=== PATIENT | male | born 1955 | race Caucasian/White ===

== ENCOUNTER 2024-07-05 10:57 | Day surgery (SDC) | payer MEDICARE ==
[~2024-07-05] VITALS: Ht 172.7 cm; Wt 98.2 kg
[2024-07-05] VITALS (10 sets, daily range): BP systolic 124–154; BP diastolic 59–75; PULSE 64–75; RESP 8–20; TEMP 98; O2SAT 93–97
[2024-07-05] MEDS ORDERED: diphenhydrAMINE 25mg capsule PO PRN (11:25)
[2024-07-05 12:13] LABS: BASOPHILS # (AUTO) 0.1 X10'3 (0-0.2); BASOPHILS % (AUTO) 1.1 % (0-1); EOSINOPHILS # (AUTO) 0.2 X10'3 (0-0.9); EOSINOPHILS % (AUTO) 3.1 % (0-6); HEMATOCRIT 43.8 % (42.0-52.0); HEMOGLOBIN 14.6 g/dl (14.0-17.9); LYMPHOCYTES # (AUTO) 1.9 X10'3 (1.1-4.8); LYMPHOCYTES % (AUTO) 28.2 % (21-51); MEAN CORPUSCULAR HEMOGLOBIN 28.7 PG (27.0-31.0); MEAN CORPUSCULAR HGB CONC 33.4 g/dL (33.0-36.5); MEAN PLATELET VOLUME 7.8 FL (7.4-10.4); MONOCYTES # (AUTO) 0.6 X10'3 (0-0.9); NEUTROPHILS # (AUTO) 3.9 X10'3 (1.8-7.7); NEUTROPHILS % (AUTO) 58.6 % (42-75); PLATELET COUNT 234 X10'3 (140-440); RED BLOOD COUNT 5.09 X10'6 (4.70-6.10); RED CELL DISTRIBUTION WIDTH 14.8 % (11.5-14.5); WHITE BLOOD COUNT 6.7 X10'3 (4.5-11.0)
[2024-07-05 12:25] LABS: ALBUMIN 4.3 G/DL (3.4-5.0); ANION GAP 10 (8-16); BLOOD UREA NITROGEN 19 MG/DL (7-18); BUN/CREATININE RATIO 25.3 (10.0-20.0); CALCIUM 8.8 MG/DL (8.5-10.1); CHLORIDE 103 MMOL/L (99-107); CREATININE 0.75 MG/DL (0.60-1.10); GLUCOSE 115 MG/DL (70-104); MAGNESIUM 2.3 MG/DL (1.5-2.4); SODIUM 139 MMOL/L (135-145); TOTAL CARBON DIOXIDE 26.5 MMOL/L (24-32); eCRCL 90 ML/MIN; eGFR > 90 ML/MIN
[2024-07-05 12:31] LABS: PROTHROMBIN TIME 10.5 SECONDS (9.0-12.0)
[2024-07-05] MEDS ORDERED: METO50TA16 PO (12:50)
[2024-07-05] MEDS ORDERED: METF-438 PO (12:50)
[2024-07-05] MEDS ORDERED: ROSU20TA98 PO (12:50)
[2024-07-05] MEDS ORDERED: OLME40TA18 PO (12:50)
[2024-07-05] MEDS: normal saline 1,000 ML IV SCH (12:54)
[2024-07-05] MEDS: sodium bicarbonate 1meq/ml syr 150 ML in dextrose 5%-water 1,000 ML IV ONE (12:54)
[2024-07-05] MEDS ORDERED: ASPI-611 PO (12:55)
[2024-07-05] MEDS ORDERED: ALBU8HFA INH (12:55)
[2024-07-05] MEDS ORDERED: iohexol 350MG/ML 100ml bottle IV ONE (15:39)
[2024-07-05] MEDS ORDERED: fentaNYL/PF 50MCG/1 ML 2ML syringe ONE (15:39)
[2024-07-05] MEDS ORDERED: midazolam 1 mg/ML 2ml injection ONE ×2 (15:39→16:24)
[2024-07-05] MEDS ORDERED: heparin 1,000unit/ml 10ml vial 10 ML ONE (15:39)
[2024-07-05] MEDS ORDERED: LIDOcaine 1% 30ml preserv. free vial ONE (15:44)
[2024-07-05] MEDS ORDERED: ondansetron/PF 4mg/2ml inj IV PRN (17:20)
[2024-07-05] MEDS ORDERED: proCHLORperazine 10 MG/2 ml inj IV PRN (17:25)
[2024-07-05] MEDS ORDERED: HYDROcodone/acetaminophen 10/325mg tab PO PRN (17:25)
[2024-07-05] MEDS ORDERED: HYDROcodone/acetaminophen 5mg/325mg tablet PO PRN (17:25)
== END 2024-07-05 20:00 | disposition home or self-care (01) ==
LOC: SSTAY O 10:57
PROVIDERS: ATTEND Internal Medicine Cardiovascular Disease
DX: I70.213 Atherosclerosis of native arteries of extremities with intermittent claudication, bilateral legs (principal); I25.2 Old myocardial infarction; I25.118 Atherosclerotic heart disease of native coronary artery with other forms of angina pectoris; I10 Essential (primary) hypertension; G62.9 Polyneuropathy, unspecified; Z95.5 Presence of coronary angioplasty implant and graft; K21.9 Gastro-esophageal reflux disease without esophagitis; Z87.440 Personal history of urinary (tract) infections; Z79.899 Other long term (current) drug therapy; Z88.8 Allergy status to other drugs, medicaments and biological substances; Z98.890 Other specified postprocedural states
CPT/HCPCS: 36245; 36415; 75716; 80048; 82948; 83735; 85025; 85610; 93005; 99152; 99153; A6258; C1769; C1894; J1644; J2003; J2250; J3010; J3490; J7030; J7070; Q9967; Z7610; 36247

== ENCOUNTER 2024-08-04 19:56 | Emergency (ER) | payer MEDICARE ==
[~2024-08-04] VITALS: Ht 175.3 cm; Wt 65.9 kg
[~2024-08-04 19:56] MED LIST: ALBU8HFA INH; ASPI-1265 PO; CLOP75TA34 PO; HYDR-3972 PO; METF-438 PO; METO50TA16 PO; OLME40TA18 PO; ROSU20TA98 PO
[2024-08-04 20:42] LABS: BASOPHILS % (AUTO) 0.2 % (0-1); EOSINOPHILS # (AUTO) 0.2 X10'3 (0-0.9); EOSINOPHILS % (AUTO) 2.1 % (0-6); HEMATOCRIT 30.1 % (42.0-52.0); HEMOGLOBIN 10.2 g/dl (14.0-17.9); LYMPHOCYTES % (AUTO) 22.6 % (21-51); MEAN CORPUSCULAR VOLUME 85.5 FL (78-98); MEAN PLATELET VOLUME 7.8 FL (7.4-10.4); MONOCYTES # (AUTO) 1.1 X10'3 (0-0.9); MONOCYTES % (AUTO) 12.3 % (2-12); NEUTROPHILS # (AUTO) 5.6 X10'3 (1.8-7.7); NEUTROPHILS % (AUTO) 62.8 % (42-75); PLATELET COUNT 268 X10'3 (140-440); RED BLOOD COUNT 3.52 X10'6 (4.70-6.10); RED CELL DISTRIBUTION WIDTH 14.6 % (11.5-14.5); WHITE BLOOD COUNT 8.9 X10'3 (4.5-11.0)
[2024-08-04 20:53] LABS: ALBUMIN 3.1 G/DL (3.4-5.0); ANION GAP 10 (8-16); BLOOD UREA NITROGEN 21 MG/DL (7-18); BUN/CREATININE RATIO 23.3 (10.0-20.0); CALCIUM 8.9 MG/DL (8.5-10.1); CHLORIDE 102 MMOL/L (99-107); GLUCOSE 124 MG/DL (70-104); POTASSIUM 3.9 MMOL/L (3.5-5.1); SODIUM 139 MMOL/L (135-145); TOTAL CARBON DIOXIDE 26.9 MMOL/L (24-32); eCRCL 72 ML/MIN; eGFR 84 ML/MIN
[2024-08-04] MEDS: ondansetron/PF 4mg/2ml inj IV ONE (21:07)
[2024-08-04] MEDS: morphine 4 MG/ML inj SYRINge IV ONE ×2 (21:08→23:34)
[2024-08-04] MEDS ORDERED: iohexol 350 MG/ML 50ML vial IV ONE (21:17)
[2024-08-04] MEDS ORDERED: iohexol 350MG/ML 100ml bottle IV ONE (21:17)
[2024-08-04] MEDS: normal saline 1000ml 1,000 ML IV ONE (21:40)
[2024-08-05 00:06] VITALS: BP 147/67; PULSE 94; RESP 15; TEMP 98.6; O2SAT 98
[2024-08-09] MEDS ORDERED: MUPI22OI30 TOP (11:17)
== END 2024-08-05 00:23 | disposition home or self-care (01) ==
LOC: ER 19:56
DX: T81.89XA Other complications of procedures, not elsewhere classified, initial encounter (principal); Y92.89 Other specified places as the place of occurrence of the external cause; Z79.82 Long term (current) use of aspirin
CPT/HCPCS: 36415; 75635; 80048; 84145; 85025; 86885; 86900; 86901; 88304; 93925; 93978; 96361; 96374; 96375; 96376; 99285; J2270; J2405; J7030; Q9967

== ENCOUNTER 2024-10-13 13:45 | Outpatient (CLI) | payer MEDICARE ==
[~2024-10-13 13:45] MED LIST changes: -ASPI-1265 PO
--- NOTE | 2024-10-14 03:49 | VASCULAR REPORT ---
Bilateral Lower Extremity Arterial Duplex Clinical History: Femoral endarterectomy Comparison: VASC VL ARTERIAL on DOS: 08/04/24, VASC VL ARTERIAL on DOS: 07/31/24 Technique: Duplex Doppler evaluation including color Doppler and spectral/pulsed waveform analysis of the lower extremity arteries was performed. Findings: RIGHT: Peak systolic velocities are as follows: LOCKSTITCH CUP SETTER 253 cm/s Deep femoral 73 cm/s SFA proximal 71 cm/s SFA mid-portion 70 cm/s SFA distal 105 cm/s Popliteal 189 cm/s Posterior tibial 106 cm/s Anterior tibial 59 cm/s Peroneal 67 cm/s Dorsalis pedis 69 cm/s The waveforms are multiphasic. LEFT: Peak systolic velocities are as follows: LOCKSTITCH CUP SETTER 133 cm/s Deep femoral 153 cm/s SFA proximal 0 cm/s SFA mid-portion 15 cm/s SFA distal 56 cm/s Popliteal 43 cm/s Posterior tibial 73 cm/s Anterior tibial 0 cm/s Peroneal 37 cm/s Dorsalis pedis 72 cm/s The waveforms are monophasic. IMPRESSION: 50-75% stenosis of the right common femoral artery. 20-49% stenosis of the right popliteal artery. Short-segment occlusion of the left superficial femoral artery proximally and left anterior tibial ar ian. Monophasic arterial waveforms in the left lower extremity suggestive of underlying peripheral arteria l disease. REFERENCE VALUES, [facility]) vascular Imaging Lab Criteria: Peak systolic velocity rang es (in cm/sec) are as follows: <150 cm/s - <20 % stenosis 150-200 cm/s - 20-49% stenosis 200-300 cm/s - 50-75% stenosis >300 cm/s -> 75% stenosis
--- NOTE | 2024-10-14 03:51 | VASCULAR REPORT ---
EXAM: [facility] ANKLE/BRACHIAL INDEX CLINICAL HISTORY: Bilateral femoral endarterectomy Peripheral vascular disease COMPARISON: [facility] OT[facility] on DOS: 07/31/24 TECHNIQUE: Bilateral systolic ankle and brachial pressures are obtained, with ankle pulse volume waveforms and i ndices. FINDINGS: Pressures: Right Left Brachial 148 mmHg n/a mmHg PT 158 mmHg noncompressible mmHg DP 130 mmHg 110 mmHg OTILIO: Right Left 1.07 .74 Pulse volume waveforms: Multiphasic on the right and monophasic on the left. IMPRESSION: Normal right OTILIO. Mild to moderate peripheral arterial disease on the left by OTILIO. Monophasic waveforms in the left lower extremity suggestive of peripheral arterial disease. 1.0-1.4: normal 0.91-0.99 borderline 0.9: abnormal (i.e. PAD) 0.4-0.9: inco-bz-[id number] PAD <0.4: suggestive of severe PAD
== END 2024-10-13 23:59 | disposition home or self-care (01) ==
LOC: VAS 13:45
PROVIDERS: ATTEND Thoracic Surgery (Cardiothoracic Vascular Surgery)
DX: I73.9 Peripheral vascular disease, unspecified (principal); Z95.820 Peripheral vascular angioplasty status with implants and grafts
CPT/HCPCS: 93922; 93925

== ENCOUNTER 2025-04-25 05:24 | Day surgery (SDC) | payer MEDICARE ==
[2025-04-25] VITALS (10 sets, daily range): BP systolic 113–142; BP diastolic 66–140; PULSE 65–74; RESP 10–17; TEMP 97.8; O2SAT 94–97
[~2025-04-25] VITALS: Ht 175.3 cm; Wt 97.8 kg
[2025-04-25] MEDS ORDERED: sodium bicarbonate 1meq/ml syr 150 ML in dextrose 5%-water 1,000 ML IV ONE (06:05)
--- NOTE | 2025-04-25 06:14 | ELECTROCARDIOGRAPH REPORT ---
[facility] Test Date: 2025-04-25 Test Time: 06:12:18 Pat Name: ABRAHAN MACKEY Department: [facility] Patient ID: [id number] Room: Gender: M [employer]pper [employer]inter: : [id number] Requested By: CAIT VARGAS Order Number: [id number] Reading MD: Dr. Iliana Park Measurements Intervals [place] Rate: 67 P: 27 [place]: 214 QRS: 23 QRSD: 87 T: 27 QT: 405 QTc: 428 Interpretive Statements Sinus rhythm Electronically Signed On 04-25-2025 7:01:[address] Iliana Park Please click the below link to view image of tracing.
[2025-04-25] MEDS ORDERED: fentaNYL/PF 50MCG/1 ML 2ML syringe ONE (06:24)
[2025-04-25] MEDS ORDERED: midazolam 1 mg/ML 2ml injection ONE ×3 (06:24→07:57)
[2025-04-25] MEDS ORDERED: heparin 1,000unit/ml 10ml vial 10 ML ONE ×2 (06:25→08:28)
[2025-04-25] MEDS ORDERED: ASPI-611 PO (06:36)
[2025-04-25] MEDS ORDERED: TADA20TA43 PO (06:36)
[2025-04-25] MEDS ORDERED: LIDOcaine 1% 30ml preserv. free vial ONE (06:59)
[2025-04-25 07:39] LABS: MEAN PLATELET VOLUME 8.4 FL (7.4-10.4); RED CELL DISTRIBUTION WIDTH 16.2 % (11.5-14.5)
[2025-04-25 07:46] LABS: INR 1.0 INR
[2025-04-25 07:47] LABS: CREATININE 0.96 MG/DL (0.60-1.10); TOTAL CARBON DIOXIDE 25.3 MMOL/L (24-32); eCRCL 72 ML/MIN; eGFR 77 ML/MIN
[2025-04-25] MEDS ORDERED: heparin 1,000 UNITS/NS 500ml 500 ML ONE (07:47)
[2025-04-25] MEDS ORDERED: iohexol 300mg/ml 100ml inj. ONE (07:47)
[2025-04-25] MEDS ORDERED: iohexol 350 MG/ML 50ML vial IV ONE (08:18)
[2025-04-25] MEDS ORDERED: clopidogrel 300mg tablet ONE (09:12)
[2025-04-25] MEDS ORDERED: CLOP-32 PO (09:55)
[2025-04-25] MEDS ORDERED: normal saline 1000ml 1,000 ML IV SCH (10:15)
--- NOTE | 2025-04-25 12:18 | CARDIOLOGY REPORT ---
DATE OF SERVICE: 04/25/2025 DICTATING PHYSICIAN: CAIT VARGAS DO CARDIAC CATHETERIZATION REPORT REFERRING PHYSICIAN: Marcie Deal MD CLINICAL HISTORY: This 69-year-old man has had bilateral common femoral endarterectomy procedures. Because of apparent reduced circulation in his left leg, he has had ultrasonography, which describes a lesion involving the popliteal artery and possibly a lesion involving the previously treated common femoral artery. PROCEDURES PERFORMED: * Left common femoral arterial access. * Placement of a Destination sheath in the contralateral/left common femoral artery. * Contralatreal femoral and popliteal arteriography. * Left popliteal retrograde sheath placement. * Ipsilateral ostial and proximal superficial femoral artery balloon angioplasty. * Ipsilatreak ostial and proximal superficial femoral artery stent placement. * Drug-eluting balloon angioplasty (superficial femoral ostium and proximal vessel). * Percutaneous popliteal artery closure (Mynx). * Percutaneous right common femoral artery arteriotomy closure (Mynx). * 2 hours, 15 minutes conscious sedation supervision. DESCRIPTION OF PROCEDURE: The patient was sedated with fentanyl and Versed. He was then prepared and draped in the usual manner. The right common femoral area was liberally infiltrated with 1% lidocaine. Using a micropuncture set and acetaminophen technique, a 7-Faroese sheath was placed in the common femoral artery. 3000 units of heparin were given. A 6-Faroese IFEANYI catheter was placed at the iliac bifurcation and a Aroda Advantage wire was passed through the IFEANYI catheter down through the iliac system and positioned in the left profunda femoris artery. The IFEANYI catheter was removed and the short 7-Faroese sheath was removed and a 45-cm Destination sheath was passed over the guidewire and passed over the iliac bifurcation with the tip position in the left/contralateral common femoral artery. Additional arteriography of the femoral and popliteal systems demonstrated an occlusion near the origin of the left superficial femoral artery, but there was reconstitution via collaterals about 3 cm below this occlusion. Filling further downstream of the superficial femoral revealed that there were no significant obstructive lesions in the popliteal artery. There followed a protracted attempt to pass the Aroda Advantage wire subintimally beneath the occlusion of the left superficial femoral artery using a 6-Faroese multipurpose catheter, a Quick-Cross catheter, and a 6-Faroese right Emmy catheter. But in all cases, the wire would not pass into the subintimal space. After these unsuccessful attempts, a decision was made to turn the patient over and access the left popliteal artery in a retrograde fashion. This was accomplished using a micropuncture set and another 7-Faroese sheath. The Aroda Advantage wire was then easily passed through the proximal SFA obstruction and into the iliac system. Angiography from the retained right common femoral Destination catheter confirmed that the wire was intraluminal. Next, the area was first dilated with a 4 x 60 mm balloon, then a 6 x 80 mm balloon, and finally a 6 x 80 mm EV3 EverFlex stent was placed across the residual stenosis. The area was then postdilated with a 6 x 80 mm Admiral drug-eluting balloon for a 3-minute inflation. Additional arteriography demonstrated good flow into the SFA, but there was about a 50% stenosis that was not covered by the self-expanding stent. This short lesion was then covered by a 7 x 29 mm Herculink balloon expandable stent. Additional arteriography revealed no significant residual stenosis in the entire SFA and brisk runoff distally. Hemostasis at the popliteal access site was successfully obtained with a Mynx catheter and after withdrawing the Destination catheter, hemostasis was achieved at the right common femoral access site. CONCLUSIONS: * This patient's principal problem was a very proximal occlusion of the left superficial femoral artery. * The popliteal artery was patent and did not appear to be significantly obstructed. * Successful retrograde reopening balloon angioplasty and stenting of the occlusion in the left superficial femoral artery. Following these interventions, there was no significant residual stenosis and brisk runoff distally. RECOMMENDATIONS: Ongoing medical therapy. CAIT VARGAS DO TID: [id number] RECEIPT: [id number] [facility]
== END 2025-04-25 14:00 | disposition home or self-care (01) ==
LOC: SSTAY O 05:24
PROVIDERS: ATTEND Internal Medicine Cardiovascular Disease
DX: I77.89 Other specified disorders of arteries and arterioles (principal); E11.9 Type 2 diabetes mellitus without complications; E78.5 Hyperlipidemia, unspecified; I10 Essential (primary) hypertension; J45.909 Unspecified asthma, uncomplicated; Z85.828 Personal history of other malignant neoplasm of skin; Z95.5 Presence of coronary angioplasty implant and graft; Z79.01 Long term (current) use of anticoagulants; Z86.74 Personal history of sudden cardiac arrest; Z98.890 Other specified postprocedural states
CPT/HCPCS: 36140; 36415; 37226; 75710; 80048; 83735; 85025; 85610; 93005; 99152; 99153; A6258; C1725; C1760; C1769; C1876; C1887; C1894; C2623; J1644; J2003; J2250; J3010; J7030; Q9967; Z7610; 36245; 36246